=== PATIENT | female | born 1945 | race Caucasian/White ===

== ENCOUNTER 2017-03-12 15:14 | Day surgery (SDC) | payer MEDICARE, OTHER ==
--- NOTE | ~2017-03-12 | EGD ---
EGD REPORT [facility] [address] [id number] NAME: MEENU LOWRY : [birth year] STATUS : REG [facility]#: [id number] AGE: 72 ADM/REG DATE : 03/12/17 MR#: [id number] REPORT SERV DATE: 03/12/17 DICTATED BY: DATE: REPORT STATUS : Draft TRANSCRIBED BY: [employer] DATE: 03/12/17 [facility] Patient Name: Meenu Lowry Date of : 1945 Attending MD: DAVI SCOTT MD Procedure Date No Time: 03/12/2017 Procedure: Colonoscopy Indications: Rectal bleeding Referring MD: BALTA LOWRY Medicines: Monitored Anesthesia Care Complications: No immediate complications. Procedure: Pre-Anesthesia Assessment: - ASA Grade Assessment: III - A patient with severe systemic disease that is a constant threat to life. After I obtained informed consent, the scope was passed under direct vision. Throughout the procedure, the patient's blood pressure, pulse, and oxygen saturations were monitored continuously. The CF [id number] (could not traverse the tumor) and then PCF was introduced through the anus and advanced to the cecum, identified by appendiceal orifice and ileocecal valve. The colonoscopy was performed without difficulty. The patient tolerated the procedure well. The quality of the bowel preparation was good. The ileocecal valve, appendiceal orifice and rectum were photographed. Findings: The perianal and digital rectal examinations were normal. A frond-like/villous, fungating, infiltrative, ulcerated partially obstructing large mass was found in the sigmoid colon, 45 cm from the anal verge. The mass was partially circumferential (involving two-thirds of the lumen circumference). This was biopsied with a cold forceps for histology. Area was successfully injected proximal and distal to the mass with total 2 mL Mariela ink for tattooing. The exam was otherwise without abnormality on direct and retroflexion views. 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 Removal was not done. Biopsied. - The examination was otherwise normal on direct and retroflexion views. Recommendation: - Discharge patient to home. - Regular diet. - Perform a CT scan (computed tomography) of chest with EGD REPORT [address] [address] NAME: MEENU LOWRY : [birth year] STATUS : REG [facility] PAT#: [id number] AGE: 72 ADM/REG DATE : 03/12/17 MR#: [id number] REPORT SERV DATE: 03/12/17 DICTATED BY: DATE: REPORT STATUS : Draft TRANSCRIBED BY: [employer] DATE: 03/12/17 contrast, abdomen with contrast and pelvis with contrast tomorrow. - Refer to a surgeon and oncology tomorrow. Procedure Code(s): --- Professional --- 33157, Colonoscopy, flexible, proximal to splenic flexure; with biopsy, single or multiple 76490, Colonoscopy, flexible, proximal to splenic flexure; with directed submucosal injection(s), any substance Diagnosis Code(s): --- Professional --- D49.0, Neoplasm of unspecified behavior of digestive system K62.5, Hemorrhage of anus and rectum CPT copyright 2013 [employer]. All rights reserved. The codes documented in this report are preliminary and upon professional athletes coach review may be revised to meet current compliance requirements. DAVI SCOTT MD 03/12/2017 5:15 PM Number of Addenda: 0 Note Initiated On: 03/12/2017 4:25 PM Scope Withdrawal Time 0 hours 15 minutes 31 seconds [id number] [id number]
[~2017-03-12 15:14] MED LIST: COREG6 PO; LEVOTHYROXIN100 MCG PO; PLAVIX PO; PRAVACHOL40 MG PO; PROZAC PO; VITAMIN D1000 UNI1 PO; VITC500 PO
== END 2017-03-12 23:59 | disposition home health service (06) ==
LOC: DMU 15:14
PROVIDERS: Internal Medicine Gastroenterology
PROC: 0DBN8ZX Excision of Sigmoid Colon, Via Natural or Artificial Opening Endoscopic, Diagnostic (ICD-10-PCS; principal; 2017-03-12 16:37)
PROC: 3E0H8GC Introduction of Other Therapeutic Substance into Lower GI, Via Natural or Artificial Opening Endoscopic (ICD-10-PCS; 2017-03-12 16:37)
DX: C18.7 Malignant neoplasm of sigmoid colon (principal); I50.9 Heart failure, unspecified; E03.9 Hypothyroidism, unspecified; I25.10 Atherosclerotic heart disease of native coronary artery without angina pectoris; Z98.890 Other specified postprocedural states; Z88.5 Allergy status to narcotic agent; Z79.899 Other long term (current) drug therapy
CPT/HCPCS: 88305